=== PATIENT | female | born 1955 | race Caucasian/White ===

== ENCOUNTER 2018-05-04 11:56 | Day surgery (SDC) | payer OTHER ==
[2018-05-04] MEDS ORDERED: LIDOCAINE 2% (SDV) 5 ML INJ (14:24)
[2018-05-04] MEDS ORDERED: PROPOFOL 60 ML (14:24)
== END 2018-05-04 15:18 | disposition home or self-care (01) ==
LOC: GIL 11:56
DX: Z12.11 Encounter for screening for malignant neoplasm of colon (principal); K21.0 Gastro-esophageal reflux disease with esophagitis; K64.8 Other hemorrhoids; I10 Essential (primary) hypertension
CPT/HCPCS: 43239; 88305; 88312